=== PATIENT | female | born 1960 | race Caucasian/White ===

== ENCOUNTER 2025-06-28 16:31 | Observation (INO) ==
--- NOTE | 2025-06-28 17:44 | ED.PDOC ---
General HPI ED Provider: Dr. GIANFRANCO RUSSO MD Chief Complaint: Cough Stated Complaint: Patient presents to the ER from home complaining of worsening productive cough. Reports onset was earlier this morning and is greenish-yellow in color. States that she has been having intermittent shortness of breath to similar to when she was previously diagnosed with pneumonia couple years ago. Denies fever, chills, nausea, vomiting, diarrhea. No other complaints at this time. Time Seen by Provider: 06/28/25 17:44 Mode of Arrival: Walk-In Information Source: Patient Exam Limitations: No limitations Nursing and Triage Documentation Reviewed and Agree: Yes Opioid Naive vs. Tolerant What is Opioid Naive?: *Opioid Naive implies the patient is not already taking opioids or not chronically receiving opioids on a daily basis. *PRN dosing is not "usually" associated with tolerance. *Patients are at higher risk of over-sedation and aspiration. What is Opioid Tolerant?: *Opioid Tolerance implies less than the expected response to an opioid. *Acquired tolerance is defined by the patient taking 60mg of oral morphine daily (or equianalgesic dose of another opioid) for 1 week or more. *Often associated with chronic pain. *May take more than usual dose to achieve desired pain control. Review of Systems Review Of Systems Constitutional: Reports No symptoms All Other Systems: Reviewed and Negative (Except for those listed in the HPI above.) PFSH PFSH Family History FATHER Cancer of kidney Social History Smoking and tobacco status: Current every day smoker Tobacco type: cigarettes Smoking packs per day: 1 Smoking cigarettes per day: 20.0 Substance use type: marijuana Surgical History H/O: section Z98.891 - History of uterine scar from previous surgery (ICD-10) History of appendectomy Z90.49 - Acquired absence of other specified parts of digestive tract (ICD- 10) Female Reproductive History Menstrual Hx Hysterectomy: No Hx Tubal Ligation: No Physical Exam Physical Exam Appearance: Reports Ill-appearing (Appears older than stated age), No pain distress and Thin Ill-appearing: None Pain Distress: None Eyes: Reports BALTAZAR and EOMI ENT: Reports Ears normal, Nose normal and Oropharynx normal Neck: Supple Respiratory: Reports Airway patent, Breath sounds equal, Breath sounds diminished and Respirations nonlabored Cardiovascular: Reports RRR and Pulses normal GI/: Reports Soft and Nontender Musculoskeletal: Reports Normal strength and ROM intact Skin: Reports Warm, Dry and Normal color Neurological: Reports Sensation intact, Motor intact, Alert and Oriented Psychiatric: Reports Affect appropriate and Mood appropriate Interpretation EKG Interpretation EKG Interpretation By: ED Physician Time of EKG #1: 20:17 Rate: Normal Rhythm: Sinus Ectopy: None [place]: NL ST Segment: Other (TWI, Leads II, III, avF, V1-6) Interpretation: Sinus rhythm with short PA, no STEMI Radiology Interpretation Radiology Interpretation By: ED Physician Radiology Results: Positive Exam Interpreted: CXR Xray Comments: Right middle lobe pneumonia interpreted by me. Course Course 06/28/25 18:04 06/28/25 18:14 Orders, Labs, Meds: Lab Review 06/28/25 06/28/25 06/28/25 18:04 18:14 18:38 WBC 30.05 H RBC 4.32 Hgb 13.6 Hct 41.4 MCV 95.8 MCH 31.5 H MCHC 32.9 RDW Coeff of Florian 14.3 Plt Count 376 Neutrophils % (Manual) 88.0 H Band Neutrophils % 1.0 Lymphocytes % (Manual) 4.0 L Monocytes % (Manual) 5.0 Reactive Lymphocytes 2.0 Anisocytosis Not present Sodium 137.9 Potassium 3.36 L Chloride 102.1 Carbon Dioxide 22.9 Anion Gap 16.26 BUN 10.3 Creatinine 0.43 L Estimated GFR (MDRD) 147.00 BUN/Creatinine Ratio 23.95 Glucose 121.6 H Lactic Acid Calcium 9.18 Magnesium 2.24 Total Bilirubin 1.43 H AST 28.9 ALT 18.2 Alkaline Phosphatase 118.6 Troponin I < 0.012 Total Protein 7.59 Albumin 4.21 Globulin 3.38 Albumin/Globulin Ratio 1.24 Procalcitonin < 0.05 D-Dimer Influ A Molecular Assay Negative by naat Influ B Molecular Assay Negative by naat SARS CoV-2 RNA Rapid RONALD Negative 06/28/25 18:40 WBC RBC Hgb Hct MCV MCH MCHC RDW Coeff of Florian Plt Count Neutrophils % (Manual) Band Neutrophils % Lymphocytes % (Manual) Monocytes % (Manual) Reactive Lymphocytes Anisocytosis Sodium Potassium Chloride Carbon Dioxide Anion Gap BUN Creatinine Estimated GFR (MDRD) BUN/Creatinine Ratio Glucose Lactic Acid 0.96 Calcium Magnesium Total Bilirubin AST ALT Alkaline Phosphatase Troponin I Total Protein Albumin Globulin Albumin/Globulin Ratio Procalcitonin D-Dimer 774.94 H Influ A Molecular Assay Influ B Molecular Assay SARS CoV-2 RNA Rapid RONALD Orders Category Date Time Status ADMIT OBSERVATION [PLACE PATIENT OBSERVATION] .TO ADMISSION 06/28/25 20:49 Completed MEDSURG (MONITORED BED) EKG-(ED ONLY) Stat CARDIO 06/28/25 19:51 Completed NEBULIZER TREATMENT Stat CARDIO 06/28/25 18:04 Completed NPO REMINDER: IMAGING ONCE CARE 06/28/25 19:37 Completed TELEMETRY MONITORING TELE CARE 06/28/25 20:49 Active Brands Editor [ED CILNICAL SCIENTIST APPLIED] .ONCE EMERGENCY 06/28/25 19:43 Active ED APPLY O2 .ONCE EMERGENCY 06/28/25 18:28 Active ED CILNICAL SCIENTIST APPLIED .ONCE EMERGENCY 06/28/25 18:28 Active ED IV/MEDIPORT/POWERPORT .ONCE EMERGENCY 06/28/25 18:28 Active ED VITAL SIGNS .ONCE EMERGENCY 06/28/25 18:28 Active BLOOD CULTURE (ED ONLY) Stat LAB 06/28/25 19:58 Received CBC W/ AUTO DIFF Stat LAB 06/28/25 18:04 Completed CMP [COMPREHENSIVE METABOLIC PANEL] Stat LAB 06/28/25 18:14 Completed D-DIMER Stat LAB 06/28/25 18:40 Completed FLU A/B MOLECULAR Stat LAB 06/28/25 18:38 Completed LACTIC ACID Stat LAB 06/28/25 18:40 Completed MAGNESIUM Stat LAB 06/28/25 18:14 Completed MANUAL DIFFERENTIAL Stat LAB 06/28/25 18:04 Completed PROCALCITONIN Stat LAB 06/28/25 18:14 Completed SARS COV-2 RNA RAPID RONALD Stat LAB 06/28/25 18:38 Completed TROPONIN I Stat LAB 06/28/25 18:14 Completed URINALYSIS C & S IF INDICATED Stat LAB 06/28/25 22:25 Completed 0.9 % Sodium Chloride [Saline Flush] Meds 06/28/25 18:27 Active 1 syr IVF PRN PRN Azithromycin Inj [Zithromax] 500 mg Meds 06/28/25 19:46 Discontinued 0.9 % Sodium Chloride [Sodium Chloride] 250 ml IV ONCE Ceftriaxone 1 gm Vial [Rocephin 1 gm Vial] Meds 06/28/25 19:46 Discontinued 2 gm IVP ONCE ONE Iohexol [Omnipaque 350 mg/ml 100Ml] Meds 06/28/25 20:00 Discontinued 100 ml IVP ONCE ONE Ipratropium/Albuterol Neb [Duoneb] Meds 06/28/25 18:04 Discontinued 3 ml NEB ONCE STA Potassium Chloride [Potassium Chloride 20 Meq/100 ml Meds 06/28/25 20:29 Discontinued Premix] 20 meq in 100 ml IV ONCE Sodium Chloride 0.9% [Sodium Chloride] 1,000 ml Meds 06/28/25 18:27 Discontinued IV BOLUS CHEST, 2 VIEWS PA & LAT Stat RADS 06/28/25 18:04 Completed CTA CHEST PE PROTOCOL Stat RADS 06/28/25 19:37 Completed Medications Generic Name Dose Route Start Last Admin Trade Name Freq PRN Reason Stop Dose Admin Acetaminophen 650 mg 06/28/25 21:04 06/28/25 22:21 Acetaminophen 325 Mg Tablet PO 650 mg Q4H PRN Administration Mild Pain Albuterol/Ipratropium 3 ml 06/28/25 21:04 Ipratropium/Albuterol Vial.Neb NEB RTQ4H PRN Wheezing Azithromycin 500 mg 06/29/25 21:00 Azithromycin 250 Mg Tablet PO 07/02/25 20:59 BEDTIME SUPA CEFTRIAXONE/D5W 1 GM PREMIX 1 gm in 50 mls @ 100 mls/hr 06/29/25 21:00 Rocephin 1 Gm/50 Ml D5w IV 07/02/25 20:59 BEDTIME SUPA Sodium Chloride 1 syr 06/28/25 18:27 06/28/25 22:12 0.9% Sodium Chloride 10 Ml Disp.Syrin IVF 1 syr PRN PRN Administration To flush IV Discontinued Medications Generic Name Dose Route Start Last Admin Trade Name Freq PRN Reason Stop Dose Admin Albuterol/Ipratropium 3 ml 06/28/25 18:04 06/28/25 18:34 Ipratropium/Albuterol Vial.Neb QUINTEN 06/28/25 18:05 3 ml ONCE STA Administration Ceftriaxone Sodium 2 gm 06/28/25 19:46 06/28/25 20:25 Ceftriaxone 1 Gm Vial IVP 06/28/25 19:47 2 gm ONCE ONE Administration Sodium Chloride 1,000 mls @ 1,000 mls/hr 06/28/25 18:27 06/28/25 20:00 Sodium Chloride IV 06/28/25 19:26 Infused BOLUS ONE Infusion Azithromycin 500 mg/ Sodium 250 mls @ 250 mls/hr 06/28/25 19:46 06/28/25 20:26 Chloride IV 06/28/25 20:45 250 mls/hr ONCE ONE Administration Potassium Chloride 20 meq in 100 mls @ 50 mls/hr 06/28/25 20:29 06/28/25 22:12 Potassium Chloride 20 Meq/100 Ml Premix IV 06/28/25 22:28 50 mls/hr ONCE ONE Administration Iohexol 100 ml 06/28/25 20:00 06/28/25 20:01 Iohexol 350 Mg/Ml 100ml IVP 06/28/25 20:01 100 ml ONCE ONE Administration [address] Report : [id number] Signed Patient: SANDRO COLEY Acct:[id number] Medical Record: [id number] : 1960 Loc: ED Room/Bed: Age/Sex: 65 / F ADM Status: REG ER Date of Service: 06/28/25 Ordering Physician: GIANFRANCO RUSSO MD Procedure(s): CTA CHEST PE PROTOCOL Report Number(s): [id number] Accession Number(s): [id number] cc: GIANFRANCO RUSSO MD EXAM: CHEST CTA WITH CONTRAST (PULMONARY ARTERY) HISTORY: Shortness of breath, elevated D-dimer TECHNIQUE: CTA acquisition of the chest from the thoracic inlet to the upper abdomen following IV contrast administration timed to filling of the pulmonary artery. Sagittal, coronal, MIP, oblique and 3-D reformats were obtained. CT Dose Reduction Techniques Employed: Yes COMPARISON: 04/24/2025 CT FINDINGS: Lines, Tubes, Devices: None. Pulmonary Embolism: No main or lobar pulmonary emboli identified. There is limited evaluation of several segmental pulmonary secondary patient motion. Of the segmental pulmonary arteries which are well seen no emboli are identified. Lung Parenchyma and Airways: Suboptimal evaluation secondary to motion artifact. Central airways are patent without endobronchial lesion. Moderate emphysema. Mild biapical scarring. Right upper lobe and right middle lobe patchy consolidation is seen. Stable 0.5 cm right upper lobe pulmonary nodule on axial image 46. Pleural Space: No pleural effusion. No pleural thickening. No pneumothorax. Thoracic Inlet, Mediastinum, and Melania: Thyroid gland is normal in appearance. Multiple pretracheal lymph nodes are now seen measuring up to 1.6 cm short axis. There is a large subcarinal lymph node measuring 2.1 cm in short axis. Heart, Vessels, and Pericardium: Heart size is normal. There is no pericardial effusion or pericardial thickening. Bones and Soft Tissues: Remote left rib fractures. Compression fracture of T7 is again seen with moderate vertebral body height loss, increased compared to the prior exam. Multiple other remote compression deformities are seen. Right supraclavicular lymph nodes are seen measuring 0.9 cm in short axis, more numerous than typically seen. Multiple right axillary lymph nodes are also identified measuring up to 0.9 cm short axis. Upper Abdomen: Within normal limits. IMPRESSION: No main or lobar pulmonary artery emboli. Limited evaluation of several segmental pulmonary arteries without definite segmental pulmonary emboli. Right upper lobe and lower lobe pneumonia. Recommend follow-up to document resolution. Prominent mediastinal adenopathy now seen. Mild right supraclavicular and right axillary lymphadenopathy. This is nonspecific and a neoplastic etiology cannot be excluded. Recommend clinical correlation and follow up. Stable 5 mm right upper lobe pulmonary nodule. Emphysema. Moderate compression fracture of T7 with mildly increased height loss compared to 04/24/2025. All CT scans are performed using dose optimization techniques as appropriate to the performed exam and include at least one of the following: Automated exposure control, adjustment of the mA and/or kV according to size, and the use of iterative reconstruction technique. Dictated By: DOMINIQUE FAIR Signed By: DOMINIQUE FAIR Dictated Date/Time: 06/28/252031 Transcribed Date/Time: 06/28/252031 Signed Date/Time: 06/28/252047 Vital Signs: Temp Pulse Resp BP Pulse Ox 06/28/25 17:05 97.2 F L 96 18 115/62 97 20:50 - Spoke with on-call hospitalist (Donaldo Montes NP) regarding pt status and current workup and management for R-sided PNA. Vitals stable, labs remarkable for WBC 30. Imaging suspicious for underlying malignancy. Will hold- off on giving steroids until repeat labs can be collected in the morning to confirm improvement with antibiotics (Rocephin 2g, Azithro 500 given). Accepts pt for admission for further workup and care. Discharge Plan Discharge Patient Disposition: PLACED OBSERVATION Discharge Problem: Pneumonia Qualifiers: Pneumonia type: due to unspecified organism Laterality: right Lung location: m iddle lobe of lung Qualified Code(s): J18.9 - Pneumonia, unspecified organism Did you review [place] MEDICAL APPOINTMENT CLERK for ALL controlled substances?: Not Applicable ED Provider: GIANFRANCO RUSSO Condition: Good
[2025-06-28 18:19] LABS: RDW COEFFICIENT OF VARIATION 14.3 % (11.6-14.8)
[2025-06-28 18:31] LABS: CREATININE 0.43 mg/dL (0.60-1.30)
[2025-06-28 18:32] LABS: BAND NEUTROPHILS % (MANUAL) 1.0 % (0.0-5.0); LYMPHOCYTES % (MANUAL) 4.0 % (10.0-50.0); MONOCYTES % (MANUAL) 5.0 % (0.0-10.0); NEUTROPHILS % (MANUAL) 88.0 % (42.2-75.2); REACTIVE LYMPHOCYTES (MANUAL) 2.0 % (0.0-5.0)
[2025-06-28] MEDS: DUONEB NEB STA (18:34)
--- NOTE | 2025-06-28 18:40 | DI ---
EXAM: CHEST TWO VIEWS HISTORY: Cough FINDINGS: Normal cardiac and mediastinal contours. Normal pulmonary vasculature. Moderate hyper expansion. Increased opacity of the right middle lobe not seen on 01/12/2024. Partially obscured right heart border. No significant abnormality of the bony thorax. IMPRESSION: Right middle lobe opacity suspect for pneumonia. Component of chronic obstructive pulmonary disease
[2025-06-28] MEDS: SODIUM CHLORIDE 1,000 ML IV ONE (19:00)
[2025-06-28 19:06] LABS: MOLECULAR FLU A NEGATIVE BY NAAT (NEGATIVE); MOLECULAR FLU B NEGATIVE BY NAAT (NEGATIVE); SARS COV-2 RNA RAPID NAAT NEGATIVE (NEGATIVE)
[2025-06-28] MEDS: OMNIPAQUE 350 MG/ML 100ML IVP ONE (20:01)
[2025-06-28] MEDS: ROCEPHIN 1 GM VIAL IVP ONE (20:25)
[2025-06-28] MEDS: ZITHROMAX 500 MG in SODIUM CHLORIDE 250 ML IV ONE (20:26)
--- NOTE | 2025-06-28 20:48 | CT ---
EXAM: CHEST CTA WITH CONTRAST (PULMONARY ARTERY) HISTORY: Shortness of breath, elevated D-dimer TECHNIQUE: CTA acquisition of the chest from the thoracic inlet to the upper abdomen following IV contrast administration timed to filling of the pulmonary artery. Sagittal, coronal, MIP, oblique and 3-D reformats were obtained. CT Dose Reduction Techniques Employed: Yes COMPARISON: 04/24/2025 CT FINDINGS: Lines, Tubes, Devices: None. Pulmonary Embolism: No main or lobar pulmonary emboli identified. There is limited evaluation of several segmental pulmonary secondary patient motion. Of the segmental pulmonary arteries which are well seen no emboli are identified. Lung Parenchyma and Airways: Suboptimal evaluation secondary to motion artifact. Central airways are patent without endobronchial lesion. Moderate emphysema. Mild biapical scarring. Right upper lobe and right middle lobe patchy consolidation is seen. Stable 0.5 cm right upper lobe pulmonary nodule on axial image 46. Pleural Space: No pleural effusion. No pleural thickening. No pneumothorax. Thoracic Inlet, Mediastinum, and Melania: Thyroid gland is normal in appearance. Multiple pretracheal lymph nodes are now seen measuring up to 1.6 cm short axis. There is a large subcarinal lymph node measuring 2.1 cm in short axis. Heart, Vessels, and Pericardium: Heart size is normal. There is no pericardial effusion or pericardial thickening. Bones and Soft Tissues: Remote left rib fractures. Compression fracture of T7 is again seen with moderate vertebral body height loss, increased compared to the prior exam. Multiple other remote compression deformities are seen. Right supraclavicular lymph nodes are seen measuring 0.9 cm in short axis, more numerous than typically seen. Multiple right axillary lymph nodes are also identified measuring up to 0.9 cm short axis. Upper Abdomen: Within normal limits. IMPRESSION: No main or lobar pulmonary artery emboli. Limited evaluation of several segmental pulmonary arteries without definite segmental pulmonary emboli. Right upper lobe and lower lobe pneumonia. Recommend follow-up to document resolution. Prominent mediastinal adenopathy now seen. Mild right supraclavicular and right axillary lymphadenopathy. This is nonspecific and a neoplastic etiology cannot be excluded. Recommend clinical correlation and follow up. Stable 5 mm right upper lobe pulmonary nodule. Emphysema. Moderate compression fracture of T7 with mildly increased height loss compared to 04/24/2025. All CT scans are performed using dose optimization techniques as appropriate to the performed exam and include at least one of the following: Automated exposure control, adjustment of the mA and/or kV according to size, and the use of iterative reconstruction technique.
[2025-06-28] MEDS ORDERED: DUONEB NEB PRN (21:04)
[2025-06-28 22:07] VITALS: BMI 24.7
[2025-06-28] MEDS: POTASSIUM CHLORIDE 20 MEQ/100 ML PREMIX 20 MEQ/100 ML BAG IV ONE (22:12)
[2025-06-28] MEDS: TYLENOL PO PRN (22:21)
[2025-06-28 22:38] LABS: GLUCOSE, URINE (UA) Negative (NEGATIVE); LEUKOCYTE ESTERASE ,URINE Negative (NEGATIVE); URINE WBC, MICROSCOPIC 0-2 (0-2); URINE, BLOOD 2+ (NEGATIVE)
[2025-06-29 05:33] LABS: IMMATURE GRANULOCYTE # (AUTO) 0.1 (0.0-1.0); IMMATURE GRANULOCYTE % (AUTO) 0.6 % (0.0-5.0); RDW COEFFICIENT OF VARIATION 14.6 % (11.6-14.8)
[2025-06-29 05:47] LABS: CREATININE 0.45 mg/dL (0.60-1.30)
--- NOTE | 2025-06-29 10:47 | PCM ---
Date of Service Date Seen by Provider: 06/29/25 Time Seen by Provider: 08:45 Admit Day/Time Admission Date: 06/28/25 Reason for Admission Chief Complaint: PNEUMONIA Hospital Provider Hospital [facility] History of Present Illness History of Present Illness: 65 yo female with no pmh presented to the ER with complaints of cough. States that cough started yesterday that was productive with yellow sputum. Also reported chills and sweats. Found to have R middle lobe pneumonia and white blood cell count of 30. Blood cultures obtained. Received IV rocephin and azith. Admitted to med/surg observation. Currently states she is feeling much better today. No further episodes of productive cough. Denies any shortness of breath or other symptoms. No fever overnight. Case Discussed With Case Discussed With: Patient's case was discussed with the ER Physicians, Dr. Alicia. [facility] Surgical History H/O: section Z98.891 - History of uterine scar from previous surgery (ICD-10) History of appendectomy Z90.49 - Acquired absence of other specified parts of digestive tract (ICD- 10) Family History FATHER Cancer of kidney Social History Smoking and tobacco status: Current every day smoker Tobacco type: cigarettes Smoking packs per day: 1 Smoking cigarettes per day: 20.0 Substance use type: marijuana Allergies Allergies Allergy/AdvReac Type Severity Reaction Status Date / Time Penicillins AdvReac Intermediate Rash Verified 06/28/25 17:04 Current Medications Home Medications Acetaminophen (Acetaminophen 325 Mg Tablet) 650 mg PO Q4H PRN PRN Reason: Mild Pain Last Admin: 06/28/25 22:21 Dose: 650 mg Albuterol/Ipratropium (Ipratropium/Albuterol Vial.Neb) 3 ml NEB RTQ4H PRN PRN Reason: Wheezing Azithromycin (Azithromycin 250 Mg Tablet) 500 mg PO BEDTIME SUPA Stop: 07/02/25 20:59 CEFTRIAXONE/D5W 1 GM PREMIX (Rocephin 1 Gm/50 Ml D5w) 1 gm in 50 mls @ 100 mls/hr IV BEDTIME SUPA Stop: 07/02/25 20:59 Sodium Chloride (0.9% Sodium Chloride 10 Ml Disp.Syrin) 1 syr IVF PRN PRN PRN Reason: To flush IV Last Admin: 06/29/25 04:44 Dose: 1 syr 1 [No Reported Medications] 06/28/25 [History Confirmed 06/28/25] Opioid Naive vs. Tolerant Does Patient Take Opioids?: No Is Patient Opioid Naive?: Yes What is Opioid Naive?: *Opioid Naive implies the patient is not already taking opioids or not chronically receiving opioids on a daily basis. *PRN dosing is not "usually" associated with tolerance. *Patients are at higher risk of over-sedation and aspiration. Is Patient Opioid Tolerant?: No What is Opioid Tolerant?: *Opioid Tolerance implies less than the expected response to an opioid. *Acquired tolerance is defined by the patient taking 60mg of oral morphine daily (or equianalgesic dose of another opioid) for 1 week or more. *Often associated with chronic pain. *May take more than usual dose to achieve desired pain control. Review of Systems Constitutional: Reports Chills and Sweats; Denies Fever Head: Reports Normocephalic Eyes: Reports No symptoms Ears: Reports No symptoms Nose: Reports No symptoms Mouth: Reports No symptoms Throat: Reports No symptoms Cardiovascular: Reports No symptoms; Denies Chest pain Respiratory: Reports Cough (yellow sputum); Denies Shortness of air Gastrointestinal: Reports No symptoms Genitourinary: Reports No Symptoms Musculoskeletal: Reports No symptoms Endocrine: Reports No symptoms Hematology: Reports No symptoms Immunology: Reports No symptoms Neurological: Reports No symptoms Psychiatric: Reports No symptoms Physical examination Most Recent Vital Signs: Most Recent Vital Signs Temperature 97.0 F L 06/29/25 10:00 Temperature Source Temporal Artery Scan 06/29/25 10:00 Temperature Source Temporal Artery Scan 06/28/25 17:05 Pulse Rate 68 06/29/25 10:00 Respiratory Rate 16 06/29/25 10:00 Blood Pressure 106/60 06/29/25 10:00 Blood Pressure Mean 75 06/29/25 10:00 Blood Pressure Right Arm 110/81 06/28/25 21:40 Blood Pressure Location Right Arm 06/29/25 10:00 Blood Pressure Position Sitting 06/29/25 05:29 O2 Sat by Pulse Oximetry 97 06/29/25 10:00 Oxygen Delivery Method Room Air 06/29/25 10:00 Height 4 ft 11 in 06/28/25 21:40 Weight 55.6 kg 06/28/25 21:40 Telemetry Type Remote Telemetry 06/29/25 07:00 Telemetry Monitoring Continues 06/29/25 07:00 Irregular Telemetry Rate (Approximate) 70-80 BPM 06/29/25 07:00 Telemetry Heart Rate 77 06/29/25 07:00 Telemetry SPO2 97 06/29/25 07:00 EKG MA Interval 0.16 06/29/25 07:00 EKG QRS Interval 0.06 06/29/25 07:00 Telemetry Strip Reading NSR 06/29/25 07:00 Appearance: Positive No Apparent Distress and Alert and Oriented x3 Skin: Positive Warm and Good Turgor HEENT: Positive Normocephalic and PERRLA Neck: Positive Supple and Midline Trachea Chest/Lungs: Positive Symmetrical With Equal Breath Sounds, Rhonci (R side) and Good Air Movement all 4 Lung Davis; Negative Rales or Wheezes Heart: Positive RRR and Pulses Normal; Negative Irregular Rhythm, Tachycardia or Bracycardia GI/: Positive Soft, Nontender, Bowel Sounds Normal and No Distention Musculoskeletal: Positive Normal Gait and Station Extremities: Positive Intact Peripheral Pulses, Stable Joints Without Laxity and Good ROM in All Joints Neurological: Positive Sensation Intact, Motor intact, Reflexes Intact, Alert, Oriented and Muscle Strength 5/5 in Upper and Lower Extremities Bilaterally Labs This Visit Labs This Visit: Labs This Visit 06/28/25 06/28/25 06/28/25 18:04 18:14 18:38 WBC 30.05 H RBC 4.32 Hgb 13.6 Hct 41.4 MCV 95.8 MCH 31.5 H MCHC 32.9 RDW Coeff of Florian 14.3 Plt Count 376 Immature Gran % (Auto) Neut % (Auto) Lymph % (Auto) [place] % (Auto) Eos % (Auto) Baso % (Auto) Neut # (Auto) Lymph # (Auto) [place] # (Auto) Eos # (Auto) Baso # (Auto) Immature Gran # (Auto) Neutrophils % (Manual) 88.0 H Band Neutrophils % 1.0 Lymphocytes % (Manual) 4.0 L Monocytes % (Manual) 5.0 Reactive Lymphocytes 2.0 Anisocytosis Not present Sodium 137.9 Potassium 3.36 L Chloride 102.1 Carbon Dioxide 22.9 Anion Gap 16.26 BUN 10.3 Creatinine 0.43 L Estimated GFR (MDRD) 147.00 BUN/Creatinine Ratio 23.95 Glucose 121.6 H Lactic Acid Calcium 9.18 Magnesium 2.24 Total Bilirubin 1.43 H AST 28.9 ALT 18.2 Alkaline Phosphatase 118.6 Troponin I < 0.012 Total Protein 7.59 Albumin 4.21 Globulin 3.38 Albumin/Globulin Ratio 1.24 Procalcitonin < 0.05 D-Dimer Urine Color Urine Clarity Urine pH Ur Specific Coral Urine Protein Urine Glucose (UA) Urine Ketones Urine Blood Urine Nitrite Urine Bilirubin Urine Urobilinogen Ur Leukocyte Esterase Urine Microscopic RBC Urine Microscopic WBC Ur Squamous Epith Cells Influ A Molecular Assay Negative by naat Influ B Molecular Assay Negative by naat SARS CoV-2 RNA Rapid RONALD Negative 06/28/25 06/28/25 06/29/25 18:40 22:25 05:15 WBC 22.74 H D RBC 3.90 L Hgb 12.4 Hct 38.3 MCV 98.2 MCH 31.8 H MCHC 32.4 RDW Coeff of Florian 14.6 Plt Count 352 Immature Gran % (Auto) 0.6 Neut % (Auto) 76.1 H Lymph % (Auto) 13.6 [place] % (Auto) 9.1 Eos % (Auto) 0.3 Baso % (Auto) 0.3 Neut # (Auto) 17.3 H Lymph # (Auto) 3.1 [place] # (Auto) 2.1 H Eos # (Auto) 0.1 Baso # (Auto) 0.1 Immature Gran # (Auto) 0.1 Neutrophils % (Manual) Band Neutrophils % Lymphocytes % (Manual) Monocytes % (Manual) Reactive Lymphocytes Anisocytosis Sodium 140.8 Potassium 3.71 Chloride 107.1 H Carbon Dioxide 22.0 Anion Gap 15.41 BUN 9.2 Creatinine 0.45 L Estimated GFR (MDRD) 140.00 BUN/Creatinine Ratio 20.44 Glucose 103.6 Lactic Acid 0.96 Calcium 8.74 Magnesium Total Bilirubin 0.86 AST 20.4 ALT 16.5 Alkaline Phosphatase 110.8 Troponin I Total Protein 6.52 Albumin 3.58 Globulin 2.94 Albumin/Globulin Ratio 1.21 Procalcitonin D-Dimer 774.94 H Urine Color Yellow Urine Clarity Clear Urine pH 6.5 Ur Specific [place] 1.010 Urine Protein Trace H Urine Glucose (UA) Negative Urine Ketones 2+ H Urine Blood 2+ H Urine Nitrite Negative Urine Bilirubin Negative Urine Urobilinogen 4.0 H Ur Leukocyte Esterase Negative Urine Microscopic RBC 5-10 Urine Microscopic WBC 0-2 Ur Squamous Epith Cells 2-5 Influ A Molecular Assay Influ B Molecular Assay SARS CoV-2 RNA Rapid RONALD Imaging Imaging: EXAM: CHEST TWO VIEWS FINDINGS: Normal cardiac and mediastinal contours. Normal pulmonary vasculature. Moderate hyper expansion. Increased opacity of the right middle lobe not seen on 01/12/2024. Partially obscured right heart border. No significant abnormality of the bony thorax. IMPRESSION: Right middle lobe opacity suspect for pneumonia. Component of chronic obstructive pulmonary disease EXAM: CHEST CTA WITH CONTRAST (PULMONARY ARTERY) FINDINGS: Lines, Tubes, Devices: None. Pulmonary Embolism: No main or lobar pulmonary emboli identified. There is limited evaluation of several segmental pulmonary secondary patient motion. Of the segmental pulmonary arteries which are well seen no emboli are identified. Lung Parenchyma and Airways: Suboptimal evaluation secondary to motion artifact. Central airways are patent without endobronchial lesion. Moderate emphysema. Mild biapical scarring. Right upper lobe and right middle lobe patchy consolidation is seen. Stable 0.5 cm right upper lobe pulmonary nodule on axial image 46. Pleural Space: No pleural effusion. No pleural thickening. No pneumothorax. Thoracic Inlet, Mediastinum, and Melnaia: Thyroid gland is normal in appearance. Multiple pretracheal lymph nodes are now seen measuring up to 1.6 cm short axis. There is a large subcarinal lymph node measuring 2.1 cm in short axis. Heart, Vessels, and Pericardium: Heart size is normal. There is no pericardial effusion or pericardial thickening. Bones and Soft Tissues: Remote left rib fractures. Compression fracture of T7 is again seen with moderate vertebral body height loss, increased compared to the prior exam. Multiple other remote compression deformities are seen. Right supraclavicular lymph nodes are seen measuring 0.9 cm in short axis, more numerous than typically seen. Multiple right axillary lymph nodes are also identified measuring up to 0.9 cm short axis. Upper Abdomen: Within normal limits. IMPRESSION: No main or lobar pulmonary artery emboli. Limited evaluation of several segmental pulmonary arteries without definite segmental pulmonary emboli. Right upper lobe and lower lobe pneumonia. Recommend follow-up to document resolution. Prominent mediastinal adenopathy now seen. Mild right supraclavicular and right axillary lymphadenopathy. This is nonspecific and a neoplastic etiology cannot be excluded. Recommend clinical correlation and follow up. Stable 5 mm right upper lobe pulmonary nodule. Emphysema. Moderate compression fracture of T7 with mildly increased height loss compared to 04/24/2025. Review Statement Review Statement: I have independently reviewed and interpreted the labs/EKGs/imaging that were ordered by the ER provider. I have reviewed all outside records that are available currently in our EMR including imaging/notes/labs from previous visits. Plan Plan: 1. Community Acquired Pneumonia - rocephin, azith, nebs prn, sputum culture, strep pneumo, legionella, and MRSA ordered and pending 2. Leukocytosis - due to above, trending down, monitor 3. Tobacco use - discussed cessation DVT Prophylaxis: Ambulation Time Spent: Greater than 80 minutes spent with patient, 50% of the time spent with this patient was devoted to counseling and coordination of care. Advanced Care Plannin minutes spent discussing advance care planning. Smoking Cessation: 3-10 minutes spent discussing smoking cessation. Disposition: Admit to: Med/Surg Observation Full Code Discussed Plan of Care with Dr. Lacey Bolanos. Medications Medication Orders: Medications Ordered Category Date Time Status 0.9 % Sodium Chloride [Saline Flush] Meds 06/28/25 18:27 Active 1 syr IVF PRN PRN Acetaminophen [Tylenol] Meds 06/28/25 21:04 Active 650 mg PO Q4H PRN Azithromycin [Zithromax] Meds 06/29/25 21:00 Active 500 mg PO BEDTIME Ceftriaxone/D5w 1 gm Premix [Rocephin 1 gm/50 ml D5w] Meds 06/29/25 21:00 Active 1 gm in 50 ml IV BEDTIME Ipratropium/Albuterol Neb [Duoneb] Meds 06/28/25 21:04 Active 3 ml NEB RTQ4H PRN
[2025-06-29] MEDS: ZITHROMAX PO SCH (20:28)
[2025-06-29] MEDS: ROCEPHIN 1 GM/50 ML D5W 1 GM/50 ML BAG IV SCH (20:28)
[2025-06-29 20:41] VITALS: RESP 18
[2025-06-29] MEDS: AUGMENTIN 875-125 MG TAB PO SCH (21:50)
[2025-06-29] MEDS: VIBRAMYCIN PO SCH (22:06)
[2025-06-30 02:24] VITALS: TEMP 97.9
[2025-06-30 05:39] LABS: IMMATURE GRANULOCYTE # (AUTO) 0.1 (0.0-1.0); IMMATURE GRANULOCYTE % (AUTO) 0.8 % (0.0-5.0); RDW COEFFICIENT OF VARIATION 14.1 % (11.6-14.8)
[2025-06-30 05:41] VITALS: BP 114/62; PULSE 66
[2025-06-30 05:51] LABS: CREATININE 0.41 mg/dL (0.60-1.30)
--- NOTE | 2025-06-30 09:04 | DCSUM ---
Admission Date Admission Date: 06/28/25 Discharge Date Discharge Date: 06/30/25 Admission Diagnosis Admission Diagnosis: 1. Community Acquired Pneumonia 2. Leukocytosis 3. Tobacco use Discharge Diagnosis Discharge Diagnosis: 1. Community Acquired Pneumonia - Improved, strep pneumo and legionella pending, MRSA negative, RX for augmentin and azith 2. Leukocytosis - trending down, blood cultures negative x 24 hours 3. Tobacco use - discussed cessation Hospital Provider Hospital [facility] Summary of History and Physical Summary of History and Physical: 65 yo female with no pmh presented to the ER with complaints of cough. States that cough started yesterday that was productive with yellow sputum. Also reported chills and sweats. Found to have R middle lobe pneumonia and white blood cell count of 30. Blood cultures obtained. Received IV rocephin and azith. Admitted to med/surg observation. Currently states she is feeling much better today. No further episodes of productive cough. Denies any shortness of breath or other symptoms. No fever overnight. Hospital Course Subjective: During stay, patient received rocephin and azith for treatment of pneumonia. SOB improved. Did not require any prn neb treatments. Did not require oxygen. White blood cell count trended down from 30 to 13 today. Blood culture negative. Rest of labs within normal limits. Rx sent for augmentin and azithmycin. Follow-up with new pcp upon discharge. Appearance: Pleasant, No Apparent Distress and Alert HEENT: MMM, Supple and No JVD CVS: No Murmur, No Rubs and No Gallop Abdomen: Soft, Non-Tender and No Distention Respiratory: No Dyspnea Extremities: No Edema Vital Signs: Most Recent Vital Signs Temperature 97.9 F 06/30/25 05:37 Temperature Source Temporal Artery Scan 06/30/25 05:37 Temperature Source Temporal Artery Scan 06/28/25 17:05 Pulse Rate 66 06/30/25 05:37 Respiratory Rate 18 06/30/25 05:37 Blood Pressure 114/62 06/30/25 05:37 Blood Pressure Mean 79 06/30/25 05:37 Blood Pressure Right Arm 110/81 06/28/25 21:40 Blood Pressure Location Right Arm 06/30/25 05:37 Blood Pressure Position Supine 06/30/25 05:37 O2 Sat by Pulse Oximetry 95 06/30/25 05:37 Oxygen Delivery Method Room Air 06/30/25 08:00 Height 4 ft 11 in 06/28/25 21:40 Weight 55.6 kg 06/28/25 21:40 Telemetry Type Remote Telemetry 06/30/25 01:00 Telemetry Monitoring Continues 06/30/25 01:00 Irregular Telemetry Rate (Approximate) 60-70 BPM 06/29/25 13:00 Telemetry Heart Rate 63 06/30/25 01:00 Telemetry SPO2 95 06/30/25 01:00 EKG MI Interval 0.13 06/30/25 01:00 EKG QRS Interval 0.07 06/30/25 01:00 Telemetry Strip Reading SR 06/30/25 01:00 Lab Results Last 24 Hours: 06/30/25 05:31 WBC 13.06 H D RBC 3.77 L Hgb 11.8 L Hct 37.3 MCV 98.9 MCH 31.3 H MCHC 31.6 L RDW Coeff of Florian 14.1 Plt Count 348 Immature Gran % (Auto) 0.8 Neut % (Auto) 68.6 Lymph % (Auto) 18.5 [place] % (Auto) 10.2 H Eos % (Auto) 1.4 Baso % (Auto) 0.5 Neut # (Auto) 9.0 H Lymph # (Auto) 2.4 [place] # (Auto) 1.3 Eos # (Auto) 0.2 Baso # (Auto) 0.1 Immature Gran # (Auto) 0.1 Sodium 141.5 Potassium 3.73 Chloride 109.7 H Carbon Dioxide 21.2 L Anion Gap 14.33 BUN 9.7 Creatinine 0.41 L Estimated GFR (MDRD) 156.00 BUN/Creatinine Ratio 23.65 Glucose 104.6 Calcium 8.92 Total Bilirubin 0.47 AST 31.3 ALT 26.1 Alkaline Phosphatase 114.1 Total Protein 6.38 Albumin 3.42 L Globulin 2.96 Albumin/Globulin Ratio 1.15 Discharge Instructions Discharge Planning: Discharge Planning > 40 minutes If patient is discharged with left ventricular systolic dysfunction: Discharged with a beta kezia? [] If no, why not? [] Discharged with an serenity/arb? [] If no, why not? [] Discharge Medications: Home Medications Acetaminophen (Acetaminophen 325 Mg Tablet) 650 mg PO Q4H PRN PRN Reason: Mild Pain Last Admin: 06/28/25 22:21 Dose: 650 mg Albuterol/Ipratropium (Ipratropium/Albuterol Vial.Neb) 3 ml NEB RTQ4H PRN PRN Reason: Wheezing Amoxicillin/Clavulanate Potassium (Amoxicillin/Potassium Clav 875/125 Mg Tablet) 1 tab PO Q12HR SUPA Stop: 07/02/25 21:49 Last Admin: 06/30/25 09:02 Dose: 1 tab Azithromycin (Azithromycin 250 Mg Tablet) 500 mg PO BEDTIME SUPA Stop: 07/02/25 20:59 Last Admin: 06/29/25 20:28 Dose: 500 mg Sodium Chloride (0.9% Sodium Chloride 10 Ml Disp.Syrin) 1 syr IVF PRN PRN PRN Reason: To flush IV Last Admin: 06/29/25 04:44 Dose: 1 syr Discharge Plan Discharge Discharge Orders: Discharge Patient (ONCE); Ordered 06/30/25 Ordered By: ISATU TAYLOR Activity Restrictions/Additional Instructions: Diagnosis: Pneumonia Diet: Regular Activity: as tolerated Medications: Lutsen Drugs #2 * Augmentin - take every 12 hours, next dose tonight until completed * Azithromycin - take at bedtime, last dose tonight Follow-up with new primary care provider. Instructions: Community Acquired Pneumonia (GEN) Patient Disposition: HOME SELF-CARE Prescriptions: New azithromycin 500 mg tablet 500 mg PO BEDTIME Qty: 1 0RF amoxicillin-pot clavulanate 875-125 mg Tablet 1 tab PO Q12HR Qty: 5 0RF Rx Instructions: Next dose tonight Did you review [place] [employer] APPRENTICE for ALL controlled substances?: No Discussed opioids are addictive and Narcan is available by prescription or from pharmacy.: No Condition: Good Referrals: MARCO NUNEZ MD [STAFF PHYSICIAN, Family Practice] - 07/03/25 11:00 am
[2025-07-01 20:08] LABS: STEP PNEUMO ORGANISM ID Not indicated. (.); STREP PNEUMO AG Negative (Negative); STREP PNEUMO BODY FLUID CULT Not indicated. (.)
== END 2025-06-30 09:40 | disposition home or self-care (01) ==
LOC: ED 16:31 → MEDSURG B 16:31
PROVIDERS: ADMIT Hospitalist; ATTEND Nurse Practitioner Family
DX: J18.9 Pneumonia, unspecified organism; Z72.0 Tobacco use; D72.829 Elevated white blood cell count, unspecified